=== PATIENT | male | born 1965 | race Caucasian/White ===

== ENCOUNTER 2021-02-15 09:52 | Outpatient (CLI) | payer MEDICARE, MEDICAID, SELFPAY ==
--- NOTE | ~2021-02-15 | XR_ITS ---
EXAMINATION: XR tibia fibula RT 2V EXAM DATE: 02/15/2021 10:21 INDICATION: M79.605 - Pain in leg. TECHNIQUE: Right tibia/fibula frontal and lateral projections obtained and reviewed. There is no lars or study for comparison. FINDINGS: Right tibial and fibular shafts unremarkable. There are no acute fractures or dislocations identified. There is no subcutaneous gas. The soft tissue is unremarkable. There are no radiopaq ue foreign bodies. IMPRESSION: 1. Unremarkable right tibia/fibula exam. Reviewed, dictated and finalized at location A.
--- NOTE | ~2021-02-15 | XR_ITS ---
EXAMINATION: XR pelvis 1-2V EXAM DATE: 02/15/2021 10:20 INDICATION: M79.605 - Pain in leg. TECHNIQUE: Pelvis frontal projection(s) obtained and reviewed. Correlation was made with CT abdomen p michell 06/14/2013. FINDINGS: There is bilateral hip avascular necrosis with some subchondral collapse, mild flattening of the femoral heads bilaterally. This has developed compared to 2012. Mild to moderate bilateral hip osteoarthritis, could be primary osteoarthritis and/or secondary to the avascular necrosis. There ar e no acute fractures or dislocations identified. There is no subcutaneous gas. The soft tissue is u nremarkable. There are no radiopaque foreign bodies. IMPRESSION: Advanced bilateral hip avascular necrosis. Mild to moderate arthritis. Reviewed, dictated and finalized at location A. IMPRESSION: Advanced bilateral hip avascular necrosis. Mild to moderate arthrit is.
== END 2021-02-15 09:53 | disposition home or self-care (01) ==
LOC: CHSIMG 09:55
PROVIDERS: PCP Family Medicine; Visit Provider Family Medicine
DX: M79.604 Pain in right leg (principal)
CPT/HCPCS: 72170; 73590